=== PATIENT | female | born 1950 | race Hispanic/Latino ===

== ENCOUNTER 2018-07-25 16:00 | Outpatient (AMBR) | payer OTHER, MEDICAID, SELFPAY ==
--- NOTE | 2018-07-12 14:11 | PTNOTE_ITS ---
PT OP Initial Eval Patient Information Visit Reasons: LOW BACK Medical Diagnosis: M54.5, M86.9 Treatment Dx #1: LBP Treatment Dx #2: Hip pain Start of Care: 07/12/18 Date of Onset: 3 months ago Initial Assessment Subjective Pt is 68 yr old female who c/o intense LBP episode about 3 months ago after driving from [place]. The next morning she couldn't move or walk. It has gotten better slowly since then and pain level today is about 5/10 and is walking limited distances. Increased pain with bending, lifting and twisting and HH chores. She lives with her son and his that helps her. 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 PMH: HTN, hysterectomy, COPD, smoker Imaging: MRI with provider of L/S Pt goal: less pain to be able to do a little more. Objective Trunk ArOM: B SB 15 with pain L<R Extension: 20% with pain around L5-S1 on R side Flexion: 13 from floor with LBP B rotation: 60% inc pain to the R R SLR ROM: 50 deg. L SLR: 55 deg with posterior knee neural tension LE strength: R hamstrings: 4-/5 R Quads 4-/5 Hip abd/add 4-/5 CEDRIC's: hip tightness TTP: moderate L paraspinals L5-S1 and diffusely PSIS L>R lumbar paraspinal atrophy Neuro: absent DTR's B LE's patellas Oswestry: 53% Assessment Pt presents with severe trunk ROM limitations, flexion and extension sensitivity consistent with DDD and radiculopathy. She has lumbar extensor atrophy and pain with prolonged standing. Pt has poor/fair pelvic kinematics and difficulty finding neutral spine. Pt has absent patellar DTR's and R LE neural tension. Short Term and [employer] Developer Goals 1. Ind with HEP 2. Improved standing tolerance to 20 minutes with <=4/10 LBP 3. Pt will improve ambulatory distance to [address] 4. Pt will squat x15 with lumbar lordosis and only slight increase in LBP Treatment Plan 90 day POC in order to complete visits. Pt requires skilled therapy in order to increase strength, decrease pain and address aforementioned impairments. Rx may consist of Therex, Manual therapy, Neuromuscular re-education, Modalities as indicated-moist heat packs, ice packs, mechanical traction, estim Frequency and Duration 2x a week for 6 weeks Certification Dates: 07/12/18 to 10/10/18 Office Procedures PT Outpatient G-Codes Date of Service PT Date of Service: 07/12/18 G-Codes Walking & Moving Around Mobility Current Status G-Code: G8978: CK 40-60% Mobility Status G-Code: G8979: CJ 20-40% PT Procedures PT Date of Service: 07/12/18 OP PT Eval Mod Complex 30 minutes: Yes
--- NOTE | 2018-07-19 18:44 | PT.ODAYNRPT ---
PT Outpatient Daily Note Date of Service: July 19, 2018 OP Daily Note Visit Reasons: LOW BACK Outpatient Physical Therapy Treatment Date: 07/19/18 Subjective: My back isn't hurting much today, I can do most things Objective: See F/S for therex NMR: pelvic PD/AE with holds, PNF to improve PD with gait x10' in SL Assessment: Good improvement with pelvic PD with gait after NMR today. Low tissue irritability today Plan: Continue per POC Length of Time (minutes) of Treatment: 30 Minutes Office Procedures PT Outpatient G-Codes Date of Service PT Date of Service: 07/12/18 G-Codes Walking & Moving Around Mobility Current Status G-Code: G8978: CK 40-60% Mobility Status G-Code: G8979: CJ 20-40% PT Procedures PT Date of Service: 07/12/18 OP PT Eval Mod Complex 30 minutes: Yes PT Procedures PT Date of Service: 07/19/18 Therapeutic Exercise 15 minutes: Yes Neuro Re-Education 15 Minutes: Yes
--- NOTE | 2018-07-25 18:44 | PT.ODAYNRPT ---
PT Outpatient Daily Note Date of Service: July 25, 2018 OP Daily Note Visit Reasons: LOW BACK Outpatient Physical Therapy Treatment Date: 07/25/18 Subjective: My back isn't hurting much today, I can do most things Objective: See F/S for therex NMR: pelvic PD/AE with holds, PNF to improve PD with gait x10' in SL Assessment: Good improvement with pelvic PD with gait after NMR today. Low tissue irritability today Plan: Continue per POC Length of Time (minutes) of Treatment: 30 Minutes Office Procedures PT Outpatient G-Codes Date of Service PT Date of Service: 07/12/18 G-Codes Walking & Moving Around Mobility Current Status G-Code: G8978: CK 40-60% Mobility Status G-Code: G8979: CJ 20-40% PT Procedures PT Date of Service: 07/12/18 OP PT Eval Mod Complex 30 minutes: Yes PT Procedures PT Date of Service: 07/19/18 Therapeutic Exercise 15 minutes: Yes Neuro Re-Education 15 Minutes: Yes PT Procedures PT Date of Service: 07/25/18 Therapeutic Exercise 15 minutes: Yes Neuro Re-Education 15 Minutes: Yes
== END 2018-07-26 23:59 | disposition home or self-care (01) ==
PROVIDERS: PCP Family Medicine; Referring Provider Family Medicine; Visit Provider Family Medicine
DX: M54.5 Low back pain (principal); M25.559 Pain in unspecified hip; R26.2 Difficulty in walking, not elsewhere classified
CPT/HCPCS: 97110; 97112; 97162; G8978; G8979

== ENCOUNTER 2018-07-27 15:51 | Outpatient (AMBR) | payer OTHER, MEDICAID, SELFPAY ==
--- NOTE | 2018-07-27 18:18 | PTNOTE_ITS ---
PT Outpatient Daily Note Date of Service: July 27, 2018 OP Daily Note Visit Reasons: low back Outpatient Physical Therapy Treatment Date: 07/27/18 Subjective: My back is sore from pulling weeds Objective: See F/S for therex MT: STM to lower L/S and pelvic post depression holds x10' total Assessment: Moderate tissue irritability limits HH and yardwork duties. Plan: Continue per POC Length of Time (minutes) of Treatment: 30 Minutes Office Procedures PT Procedures PT Date of Service: 07/27/18 Therapeutic Exercise 15 minutes: Yes Manual Certified Medication Technician 15 minutes: Yes
== END 2018-08-25 23:59 | disposition home or self-care (01) ==
PROVIDERS: PCP Family Medicine; Referring Provider Family Medicine; Visit Provider Family Medicine
DX: M54.5 Low back pain (principal); M25.559 Pain in unspecified hip
CPT/HCPCS: 97110; 97140